=== PATIENT | male | born 1960 | race African-American/Black ===

== ENCOUNTER → 2018-08-10 | Outpatient (REF) | payer OTHER ==
[~2018-08-10] MED LIST: ATIVAN2 MG OR; DEPAKENE250 MG OR; LISINOPRIL5 MG OR; VISTARIL50 MG OR
[2018-08-10 14:24] LABS: IMMATURE GRANULOCYTES 0.3 % (0.0-5.0); MEAN CELL VOLUME 105.1 fL CALC (80.0-100.0); MEAN CORPUSCULAR HGB 33.6 pG CALC (26.0-32.0); NEUT# 1.27 thou/uL (1.82-7.42); RED BLOOD COUNT 3.96 mill/uL (4.70-6.10); RED CELL DISTRI WIDTH 12.7 % (11.5-15.5)
[2018-08-10 14:25] LABS: HEMATOCRIT 41.6 % (39.0-50.0); HEMOGLOBIN 13.3 g/dl (14.0-18.0)
[2018-08-10 14:28] LABS: PROTHROMBIN TIME 10.7 SECONDS (9.0-12.5)
[2018-08-10 14:39] LABS: ANION GAP 17 (6-22 (CALC)); BILIRUBIN, TOTAL 0.4 mg/dL (0.0-1.4); BUN 18 mg/dL (9-20); BUN/CREATININE RATIO 15 (12-20 (CALC)); CARBON DIOXIDE 28 mmol/l (22-30); CHLORIDE 101 mmol/l (95-108); CREATININE 1.3 mg/dL (0.7-1.3); GFR 57 ML/MIN (>=60 (CALC)); GFR FOR AFR.AMER. > 60 ML/MIN (>=60 (CALC)); POTASSIUM 4.7 mmol/l (3.5-5.1); SGOT/AST 31 u/l (17-59); SODIUM 141 mmol/l (137-146)
[2018-08-10 14:41] LABS: ALBUMIN 4.7 g/dL (3.2-5.0); ALKALINE PHOSPHATASE 66 u/l (38-126); TOTAL PROTEIN 7.7 g/dL (6.3-8.2)
== END | disposition home or self-care (01) | DRG 951 ==
LOC: LABSPEC 14:01
PROVIDERS: ATTEND Internal Medicine
DX: Z01.818 Encounter for other preprocedural examination (principal)

== ENCOUNTER → 2018-09-01 | Outpatient (REF) | payer OTHER ==
[2018-09-01 10:25] LABS: IMMATURE GRANULOCYTES 0.6 % (0.0-5.0); MEAN CORPUSCULAR HGB 30.7 pG CALC (26.0-32.0); MEAN CORPUSCULAR HGB CONC 31.7 g/L CALC (32.0-36.0); NEUT# 2.21 thou/uL (1.82-7.42); RED BLOOD COUNT 3.35 mill/uL (4.70-6.10); RED CELL DISTRI WIDTH 16.2 % (11.5-15.5)
[2018-09-01 10:29] LABS: HEMATOCRIT 32.5 % (39.0-50.0); HEMOGLOBIN 10.3 g/dl (14.0-18.0)
[2018-09-01 10:40] LABS: ALKALINE PHOSPHATASE 53 u/l (38-126); ANION GAP 14 (6-22 (CALC)); BILIRUBIN, TOTAL 0.3 mg/dL (0.0-1.4); BUN 20 mg/dL (9-20); BUN/CREATININE RATIO 17 (12-20 (CALC)); CARBON DIOXIDE 29 mmol/l (22-30); CHLORIDE 103 mmol/l (95-108); CREATININE 1.2 mg/dL (0.7-1.3); GFR > 60 ML/MIN (>=60 (CALC)); GFR FOR AFR.AMER. > 60 ML/MIN (>=60 (CALC)); POTASSIUM 4.7 mmol/l (3.5-5.1); SGOT/AST 22 u/l (17-59); SODIUM 141 mmol/l (137-146); TOTAL PROTEIN 6.3 g/dL (6.3-8.2)
[2018-09-01 10:43] LABS: ALBUMIN 3.6 g/dL (3.2-5.0)
[2018-09-01 11:08] LABS: TSH, 3RD GENERATION 3.16 uIU/mL (0.47 - 4.68)
== END | disposition home or self-care (01) | DRG 951 ==
LOC: LABSPEC 09:33
PROVIDERS: ATTEND Internal Medicine
DX: Z98.890 Other specified postprocedural states (principal)

== ENCOUNTER 2018-11-26 08:41 | Emergency (ER) | payer OTHER ==
[~2018-11-26] VITALS: Ht 193 cm; Wt 100.0 kg
[2018-11-26 09:56] VITALS: BP 131/83
== END 2018-11-26 10:06 | disposition designated cancer center or children's hospital (05) | DRG 395 ==
LOC: ED 08:41
DX: T18.9XXA Foreign body of alimentary tract, part unspecified, initial encounter (principal); I10 Essential (primary) hypertension; E11.9 Type 2 diabetes mellitus without complications; I25.2 Old myocardial infarction; X58.XXXA Exposure to other specified factors, initial encounter; Y92.149 Unspecified place in prison as the place of occurrence of the external cause

== ENCOUNTER 2019-03-22 22:38 | Emergency (ER) | payer OTHER ==
[~2019-03-22] VITALS: Ht 193 cm; Wt 88.6 kg
[2019-03-23] VITALS: BP 142/84
[2019-03-23] LABS: HEMATOCRIT 33.8 % (39.0-50.0); HEMOGLOBIN 10.6 g/dl (14.0-18.0); IMMATURE GRANULOCYTES 0.2 % (0.0-5.0); MEAN CELL VOLUME 101.8 fL CALC (80.0-100.0); MEAN CORPUSCULAR HGB 31.9 pG CALC (26.0-32.0); MEAN CORPUSCULAR HGB CONC 31.4 g/L CALC (32.0-36.0); NEUT# 2.89 thou/uL (1.82-7.42); RED BLOOD COUNT 3.32 mill/uL (4.70-6.10); RED CELL DISTRI WIDTH 12.9 % (11.5-15.5)
[2019-03-23 00:14] LABS: ALBUMIN 3.7 g/dL (3.2-5.0); ALKALINE PHOSPHATASE 60 u/l (38-126); ANION GAP 12 (6-22 (CALC)); BILIRUBIN, TOTAL 0.3 mg/dL (0.0-1.4); BUN 18 mg/dL (9-20); BUN/CREATININE RATIO 16 (12-20 (CALC)); CARBON DIOXIDE 30 mmol/l (22-30); CHLORIDE 104 mmol/l (95-108); CREATININE 1.1 mg/dL (0.7-1.3); GFR > 60 ML/MIN (>=60 (CALC)); GFR FOR AFR.AMER. > 60 ML/MIN (>=60 (CALC)); POTASSIUM 4.7 mmol/l (3.5-5.1); SGOT/AST 38 u/l (17-59); SODIUM 141 mmol/l (137-146); TOTAL PROTEIN 6.5 g/dL (6.3-8.2)
[2019-03-23 00:17] LABS: ACT PARTIAL THROMBO TIME 23.6 SECONDS (20.0-32.5); INTERNATIONAL NORMALIZED RATIO 1.1 RATIO (0.7-1.3); PROTHROMBIN TIME 11.5 SECONDS (9.0-12.5)
== END 2019-03-23 00:05 | DRG 914 ==
LOC: ED 22:38
PROVIDERS: Family Medicine
DX: S45.112A Laceration of brachial artery, left side, initial encounter (principal); S41.112A Laceration without foreign body of left upper arm, initial encounter; I10 Essential (primary) hypertension; F31.9 Bipolar disorder, unspecified; F20.9 Schizophrenia, unspecified; E11.9 Type 2 diabetes mellitus without complications; I25.2 Old myocardial infarction; X78.8XXA Intentional self-harm by other sharp object, initial encounter; Y92.149 Unspecified place in prison as the place of occurrence of the external cause

== ENCOUNTER 2019-04-15 17:37 | Inpatient (IN) | payer OTHER ==
[~2019-04-15] VITALS: Ht 193 cm; Wt 70.1 kg
[2019-04-15 19:07] LABS: HEMATOCRIT 34.4 % (39.0-50.0); HEMOGLOBIN 10.5 g/dl (14.0-18.0); MEAN CELL VOLUME 106.8 fL CALC (80.0-100.0); MEAN CORPUSCULAR HGB 32.6 pG CALC (26.0-32.0); MEAN CORPUSCULAR HGB CONC 30.5 g/L CALC (32.0-36.0); NEUT# 0.86 thou/uL (1.82-7.42); RED BLOOD COUNT 3.22 mill/uL (4.70-6.10); RED CELL DISTRI WIDTH 14.8 % (11.5-15.5)
[2019-04-15 19:59] LABS: ALBUMIN 4.2 g/dL (3.2-5.0); ALKALINE PHOSPHATASE 61 u/l (38-126); ANION GAP 15 (6-22 (CALC)); BILIRUBIN, TOTAL 0.4 mg/dL (0.0-1.4); BUN 16 mg/dL (9-20); BUN/CREATININE RATIO 14 (12-20 (CALC)); CARBON DIOXIDE 26 mmol/l (22-30); CHLORIDE 105 mmol/l (95-108); CREATININE 1.1 mg/dL (0.7-1.3); GFR > 60 ML/MIN (>=60 (CALC)); GFR FOR AFR.AMER. > 60 ML/MIN (>=60 (CALC)); POTASSIUM 4.3 mmol/l (3.5-5.1); SGOT/AST 23 u/l (17-59); SODIUM 142 mmol/l (137-146); TOTAL PROTEIN 7.2 g/dL (6.3-8.2)
[2019-04-15 20:11] LABS: PROTHROMBIN TIME 10.6 SECONDS (9.0-12.5)
[2019-04-15] MEDS ORDERED: ASPIRIN81 MG PO (22:26)
[2019-04-15] MEDS ORDERED: LIPITOR20 M1 PO (22:27)
[2019-04-15] MEDS ORDERED: FUROSEMIDE20 MG PO (22:28)
[2019-04-15] MEDS ORDERED: FERR SULFATE325 MG PO (22:28)
[2019-04-15] MEDS ORDERED: ISOSORB MONO30 MG PO (22:29)
[2019-04-15] MEDS ORDERED: LISINOPRIL20 MG PO (22:33)
[2019-04-15] MEDS ORDERED: LAMICTAL100 M1 PO (22:33)
[2019-04-15] MEDS ORDERED: METFORMIN850 MG PO (22:34)
[2019-04-15] MEDS ORDERED: METOPROL TAR25 MG PO (22:34)
[2019-04-15] MEDS ORDERED: PROTONIX40 M2 PO (22:35)
[2019-04-15] MEDS ORDERED: RANITIDINE150 M1 PO (22:37)
[2019-04-15] MEDS ORDERED: POT CHLORIDE10 ME5 PO (22:37)
[2019-04-15] MEDS ORDERED: VALPROIC ACD250 M3 PO (22:38)
[2019-04-16] VITALS (14 sets, daily range): BP systolic 119–160; BP diastolic 74–100
[2019-04-16 05:33] LABS: HEMATOCRIT 33.8 % (39.0-50.0); HEMOGLOBIN 10.3 g/dl (14.0-18.0); IMMATURE GRANULOCYTES 0.4 % (0.0-5.0); MEAN CELL VOLUME 106.3 fL CALC (80.0-100.0); MEAN CORPUSCULAR HGB 32.4 pG CALC (26.0-32.0); MEAN CORPUSCULAR HGB CONC 30.5 g/L CALC (32.0-36.0); NEUT# 0.9 thou/uL (1.82-7.42); RED BLOOD COUNT 3.18 mill/uL (4.70-6.10); RED CELL DISTRI WIDTH 14.6 % (11.5-15.5)
[2019-04-16 09:07] LABS: HEMATOCRIT 34.8 % (39.0-50.0); HEMOGLOBIN 10.6 g/dl (14.0-18.0); MEAN CELL VOLUME 106.1 fL CALC (80.0-100.0); MEAN CORPUSCULAR HGB 32.3 pG CALC (26.0-32.0); MEAN CORPUSCULAR HGB CONC 30.5 g/L CALC (32.0-36.0); NEUT# 0.93 thou/uL (1.82-7.42); RED BLOOD COUNT 3.28 mill/uL (4.70-6.10); RED CELL DISTRI WIDTH 14.6 % (11.5-15.5)
[2019-04-16 09:18] LABS: URINE BILIRUBIN - DIPSTICK NEGATIVE (NEGATIVE); URINE BLOOD DIPSTICK NEGATIVE (NEGATIVE); URINE COLOR YELLOW; URINE GLUCOSE - DIPSTICK NEGATIVE (NEGATIVE); URINE KETONE NEGATIVE (NEGATIVE); URINE LEUK ESTERASE NEGATIVE (NEGATIVE); URINE NITRITE - DIPSTICK NEGATIVE (Negative); URINE PH 7.5 (4.5-8.0); URINE PROTEIN - DIPSTICK NEGATIVE (NEG-TRACE); URINE SPECIFIC GRAVITY 1.015; URINE UROBILINOGEN - DIPSTICK 0.2 E.U./dL (0.2)
[2019-04-16 09:40] LABS: ANION GAP 11 (6-22 (CALC)); BUN 15 mg/dL (9-20); BUN/CREATININE RATIO 16 (12-20 (CALC)); CARBON DIOXIDE 28 mmol/l (22-30); CHLORIDE 106 mmol/l (95-108); GFR > 60 ML/MIN (>=60 (CALC)); GFR FOR AFR.AMER. > 60 ML/MIN (>=60 (CALC)); MAGNESIUM 1.6 mg/dL (1.6-2.3); POTASSIUM 3.9 mmol/l (3.5-5.1); SODIUM 142 mmol/l (137-146)
[2019-04-16 18:14] LABS: HEMATOCRIT 32.6 % (39.0-50.0); HEMOGLOBIN 10.1 g/dl (14.0-18.0)
[2019-04-17] VITALS (7 sets, daily range): BP systolic 145–177; BP diastolic 73–105
[2019-04-17 05:05] LABS: HEMATOCRIT 31.1 % (39.0-50.0); HEMOGLOBIN 9.9 g/dl (14.0-18.0); MEAN CORPUSCULAR HGB 32.8 pG CALC (26.0-32.0); MEAN CORPUSCULAR HGB CONC 31.8 g/L CALC (32.0-36.0); NEUT# 0.95 thou/uL (1.82-7.42); RED BLOOD COUNT 3.02 mill/uL (4.70-6.10); RED CELL DISTRI WIDTH 14.4 % (11.5-15.5)
[2019-04-17 05:25] LABS: ANION GAP 9 (6-22 (CALC)); BUN 15 mg/dL (9-20); BUN/CREATININE RATIO 15 (12-20 (CALC)); CARBON DIOXIDE 25 mmol/l (22-30); CHLORIDE 110 mmol/l (95-108); GFR > 60 ML/MIN (>=60 (CALC)); GFR FOR AFR.AMER. > 60 ML/MIN (>=60 (CALC)); POTASSIUM 4.4 mmol/l (3.5-5.1); SODIUM 140 mmol/l (137-146)
== END 2019-04-17 14:34 | disposition designated cancer center or children's hospital (05) | DRG 394 ==
LOC: ED 17:37 → ED-I 20:32 → ED 20:47 → ICU 20:48 → MS2 04-17 06:55
PROVIDERS: Emergency Medicine; Nurse Practitioner Family; ADMIT Internal Medicine; ATTEND Internal Medicine
DX: T18.4XXA Foreign body in colon, initial encounter (principal); F20.0 Paranoid schizophrenia; D61.818 Other pancytopenia; T18.3XXA Foreign body in small intestine, initial encounter; T18.5XXA Foreign body in anus and rectum, initial encounter; X78.8XXA Intentional self-harm by other sharp object, initial encounter; I10 Essential (primary) hypertension; E11.9 Type 2 diabetes mellitus without complications; Z79.84 Long term (current) use of oral hypoglycemic drugs; E78.5 Hyperlipidemia, unspecified; I25.10 Atherosclerotic heart disease of native coronary artery without angina pectoris; Z95.5 Presence of coronary angioplasty implant and graft; F31.9 Bipolar disorder, unspecified; Y92.149 Unspecified place in prison as the place of occurrence of the external cause
CPT/HCPCS: S0164

== ENCOUNTER 2021-06-28 13:22 | Emergency (ER) | payer OTHER ==
[~2021-06-28] VITALS: Ht 193 cm; Wt 105.0 kg
[~2021-06-28 13:22] MED LIST changes: +ASPIRIN81 MG PO; +FERR SULFATE325 MG PO; +FUROSEMIDE20 MG PO; +ISOSORB MONO30 MG PO; +LAMICTAL100 M1 PO; +LIPITOR20 M1 PO; +LISINOPRIL20 MG PO; +METFORMIN850 MG PO; +METOPROL TAR25 MG PO; +POT CHLORIDE10 ME5 PO; +PROTONIX40 M2 PO; +RANITIDINE150 M1 PO; +VALPROIC ACD250 M3 PO
[2021-06-28 16:30] VITALS: BP 138/80
[2021-06-28] MEDS ORDERED: DEPAKOTE500 MG PO (16:36)
[2021-06-28 16:54] LABS: IMMATURE GRANULOCYTES 0.3 % (0.0-5.0); MEAN CELL VOLUME 103.4 fL CALC (80.0-100.0); MEAN CORPUSCULAR HGB 32.3 pG CALC (26.0-32.0); MEAN CORPUSCULAR HGB CONC 31.2 g/dL CAL (32.0-36.0); NEUT# 1.57 thou/uL (1.82-7.42); RED BLOOD COUNT 4.37 mill/uL (4.70-6.10); RED CELL DISTRI WIDTH 12.2 % (11.5-15.5)
[2021-06-28 16:56] LABS: HEMATOCRIT 45.2 % (39.0-50.0); HEMOGLOBIN 14.1 g/dl (14.0-18.0)
[2021-06-28 17:09] LABS: ALBUMIN 4.5 g/dL (3.2-5.0); ALKALINE PHOSPHATASE 79 u/l (38-126); ANION GAP 11 (6-22 (CALC)); BUN 18 mg/dL (9-20); BUN/CREATININE RATIO 15 (12-20 (CALC)); CARBON DIOXIDE 29 mmol/l (22-30); CHLORIDE 105 mmol/l (95-108); CREATININE 1.2 mg/dL (0.7-1.3); GFR > 60 ML/MIN (>=60 (CALC)); GFR FOR AFR.AMER. > 60 ML/MIN (>=60 (CALC)); LIPASE 76 u/l (23-300); POTASSIUM 4.6 mmol/l (3.5-5.1); SGOT/AST 26 u/l (17-59); SODIUM 141 mmol/l (137-146); TOTAL PROTEIN 7.9 g/dL (6.3-8.2)
[2021-06-28 17:15] LABS: BILIRUBIN, TOTAL 0.9 mg/dL (0.0-1.4)
== END 2021-06-28 17:08 | disposition short-term general hospital (02) | DRG 395 ==
LOC: ED 13:22
DX: T18.2XXA Foreign body in stomach, initial encounter (principal); I10 Essential (primary) hypertension; E11.9 Type 2 diabetes mellitus without complications; F31.9 Bipolar disorder, unspecified; I25.2 Old myocardial infarction; X58.XXXA Exposure to other specified factors, initial encounter; Y92.149 Unspecified place in prison as the place of occurrence of the external cause; Z91.52 Personal history of nonsuicidal self-harm; Z79.84 Long term (current) use of oral hypoglycemic drugs; Z20.822 Contact with and (suspected) exposure to COVID-19